=== PATIENT | female | born 2000 | race Caucasian/White ===

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

== ENCOUNTER 2022-08-23 16:43 | Emergency (ER) | payer OTHER, SELFPAY ==
[2022-08-23 16:44] VITALS: BP 103/12; PULSE 70; RESP 15; TEMP 35.9; O2SAT 100; BMI 27.2
--- NOTE | 2022-08-23 17:04 | EKG12_ITS ---
Test Reason : HEAD INJURY Blood Pressure : / mmHG Vent. Rate : 065 BPM Atrial Rate : 065 BPM P-R Int : 134 ms QRS Dur : 086 ms QT Int : 416 ms P-R-T Axes : 031 071 043 degrees QTc Int : 432 ms Somatic/Motion Artifact Normal sinus rhythm Confirmed by JAQUELINE LACKEY, VIVIANE ([id number]), photography editor NICK MEZA ([id number]) on 08/28/2022 9:35:00 AM Referred By: Confirmed By:VIVIANE PARSONS MD
--- NOTE | 2022-08-23 17:04 | CT_ITS ---
EXAMINATION : Head CT w/out contrast HISTORY : head injury COMPARISON : None. TECHNIQUE : Multiple contiguous axial images were obtained from the skull base to the vertex without intravenous contrast. A radiation dose optimization technique was used for this scan. FINDINGS : The ventricles and sulci are normal in size. There is no evidence for acute intracranial hemorrhage, mass effect, or midline shift. There is no extra-axial fluid collection. There is normal corcoran-white differentiation, without CT evidence of acute ischemia or infarct. The skull base and calvarium are unremarkable. The orbits are unremarkable. The paranasal sinuses are clear. The mastoid air cells are well-aerated. The soft tissues are unremarkable. CT/Brain/Head without Contrast IMPRESSION: No acute intracranial abnormality. Electronically Signed: Rasta Avina MD at 17:54 EDT ,
--- NOTE | 2022-08-23 17:05 | EDS_ITS ---
HPI History of Present Illness Chief Complaint: Head Injury Detail of Chief Complaint: Syncope and head injury Informant: patient Narrative Narrative: States shePatient reports having 2 syncopal episodes 6 days ago. The second time she passed out she fell and hit her head. Since that time she had continued headache with nausea and vomiting. Feel warm and flushed before she passed out and felt as if she needed to sit down. She does not have her heart was racing. She has had a couple near syncopal episodes since that time but was not sure it was because of the concussion or something else. Patient states that she did start Prozac recently, but started this after her syncopal episode. [facility] Medical History Acute bronchitis, unspecified Asthma Laceration of right index finger Sprain of right index finger Home Medications albuterol 90 mcg/actuation aerosol inhaler 1 mcg inhalation Q6H PRN Shortness Of Breath 09/10/21 [History Last Taken Unknown] azithromycin 250 mg tablet 250 mg PO QDAY #6 tabs 07/19/22 [Rx Last Taken Unknown] methylprednisolone 4 mg tablets in a dose pack (Medrol (Anton)) See Rx Instructions PO PER PKG DIR #21 tabs 07/19/22 [Rx Last Taken Unknown] Allergy/AdvReac Type Severity Reaction Status Date / Time No Known Allergies Allergy Verified 08/23/22 16:44 Social History household members: family housing: other details: Freshman dorm, [employer] [place] [employer] Smoking Status: Never smoker substance use type: does not use ROS ROS ED Constitutional Constitutional ED: Denies chills or fever(s) Eyes Eyes: Denies change in vision or discharge from eye(s) ENT ENT ED: Denies discharge from eye(s), rhinorrhea or sore throat Cardiovascular Cardiovascular: Denies chest pain or palpitations Respiratory/Chest Respiratory/Chest: Denies cough or dyspnea Gastrointestinal Gastrointestinal: Denies abdominal pain, diarrhea, nausea or vomiting Genitourinary Genitourinary ED: Denies dysuria Musculoskeletal Musculoskeletal: Denies back pain or extremity pain Integumentary Denies Abrasions or rash Neurologic Neurologic: Reports headache(s); Denies weakness Psychiatric Psychiatric: Denies anxiety or depression Allergic/Immunologic Allergic/Immunologic ED: Denies lip swelling or urticaria EXAM Physical Exam Const Vital Signs: 08/23/22 16:44 08/23/22 18:16 Temperature 96.7 F L Temperature Source Temporal Pulse Rate 70 77 Respiratory Rate 15 23 H Blood Pressure 103/12 L Blood Pressure Mean 42 Pulse Ox 100 100 Oxygen Delivery Method Room Air Room Air Positive well nourished and well developed General Appearance ED: well developed HEENT Reports normocephalic and head/scalp atraumatic Eyes PERRL and EOMs intact bilaterally Neck supple Chest Wall inspection of chest normal and palpation of chest normal Resp normal respiratory effort and clear to auscultation bilaterally Cardio regular rate and regular rhythm GI normal to inspection, nondistended, normoactive bowel sounds Palpation: soft Extremity normal to inspection Neuro oriented x3 and no sensory deficits noted Sensorium / Orientation: alert Motor Exam: strength 5/5 throughout Psych mental status grossly normal Skin no rashes or lesions noted MDM MDM MDM Narrative Medical decision making narrative: Patient placed on compliance monitor. EKG obtained. Lab work and head CT ordered. Lab Data Labs: Laboratory Results - last 24 hr 08/23/22 08/23/22 17:25 17:25 WBC 6.7 RBC 4.54 Hgb 13.2 Hct 39.1 MCV 86.1 MCH 29.1 MCHC 33.8 RDW Std Deviation 38.5 RDW Coeff of Khurram 12.2 Plt Count 304 MPV 9.3 Immature Gran % (Auto) 0.300 Neut % (Auto) 58.5 Lymph % (Auto) 32.5 [place] % (Auto) 7.2 Eos % (Auto) 0.6 Baso % (Auto) 0.9 Absolute Neuts (auto) 3.9 Absolute Lymphs (auto) 2.18 Nucleated RBC % 0 Sodium 138 Potassium 3.4 L Chloride 106 Carbon Dioxide 25.0 Anion Gap 7 BUN 9 Creatinine 0.71 Estim Creat Clear Calc 119.31 Est GFR (MDRD) Af Amer 136 Est GFR (MDRD) Non-Af 112 BUN/Creatinine Ratio 12.7 Glucose 93 Calcium 9.4 Radiography Diagnostic Testing: Clinical Impression(s) from Imaging Studies Brain CT 08/23/22 17:04 IMPRESSION: No acute intracranial abnormality. Electronically Signed: Rasta Avina MD at 17:54 EDT , EKG Initial EKG: Attestation: I personally reviewed and interpreted this EKG as follows: Interpretation: Sinus Rhythm (Sinus at 65 with no acute ischemia.) Treatment and Re-Evaluation Narrative: CBC and chemistry studies significant only for slightly low potassium at 3.4. Head CT reveals no acute findings. Test results discussed with her. I did encourage her to return for any recurrent syncopal episodes. She did appear to have a prodrome. I will give her precautions for concussion as well. Discharge Plan Triage Chief Complaint: Head Injury ED Provider: Kimberly Young Dx/Rx/DC Orders Clinical Impression: Closed head injury, Concussion, Syncope Instructions: ED Concussion, ED Fainting, Uncertain Cause Prescriptions: No Action azithromycin 250 mg tablet 250 mg PO QDAY Qty: 6 0RF Rx Instructions: 2 tablets today, then 1 tablet daily on days 2 through 5 methylprednisolone [Medrol (Anton)] 4 mg tablets,dose pack See Rx Instructions PO PER PKG DIR Qty: 21 0RF Rx Instructions: PO PER PKG DIR albuterol 90 mcg/actuation Aerosol 1 mcg INHALATION Q6H PRN (Reason: Shortness Of Breath) Primary Care Provider: Care Physician,No Primary Referrals: [facility] Doctor,Out of [Non-Staff] - Disposition Disposition: Home, Self Care
--- NOTE | 2022-08-23 17:10 | NURSING ---
NO OLD EKGS
[2022-08-23 17:35] LABS: Absolute Lymphocyte Count 2.18 X10^3/uL (0.83-4.51); Absolute Neutrophil Count 3.9 X10^3/uL (2.0-7.7); Basophil# 0.06 X10^3/uL; Basophil% 0.9 % (0-1); Eosinophil# 0.04 X10^3/uL; Eosinophils% 0.6 % (0-5); Hematocrit 39.1 % (37-47); Hemoglobin 13.2 g/dL (12.0-15.0); Lymphocyte # 2.18 X10^3/ul (0.83-4.51); Lymphocyte % 32.5 % (19-41); Mean Corp Hgb Conc 33.8 g/dL (32-36); Mean Corpuscular Hgb 29.1 pg (27.0-32.0); Mean Corpuscular Volume 86.1 fL (81-99); Mean Platelet Vol. 9.3 fl (6.2-12.0); Monocyte# 0.48 X10^3/uL; Monocyte% 7.2 % (0-10); NRBC Flagged by Analyzer 0 % (0-5); Neutrophil # 3.92 X10^3/uL (2.7-7.7); Neutrophil % 58.5 % (47-70); Platelet Count 304 K/mm3 (150-450); RBC Distribution Width CV 12.2 % (11.6-14.6); RBC Distribution Width SD 38.5 fl (35.1-43.9); Red Blood Count 4.54 M/mm3 (4.2-5.4); White Blood Count 6.7 K/mm3 (4.4-11.0)
[2022-08-23] MEDS: 0.9% Normal Saline 1,000 ML 1000 ML IV (18:04)
[2022-08-23 18:16] VITALS: PULSE 77; RESP 23; O2SAT 100
[2022-08-23 19:03] LABS: Anion Gap 7 (5-15); BUN 9 mg/dL (7-18); BUN/Creat Ratio 12.7 RATIO (10-20); Calcium,Total 9.4 mg/dL (8.5-10.1); Chloride 106 mmol/L (98-107); Creatinine, Serum 0.71 mg/dL (0.55-1.02); EST Glomerular Filtration Rate 112 mL/min (>60); Est Glom Filt Rate - Afr Amer 136 mL/min (>60); Estimated Creatinine Clearance 119.31 ml/min; Glucose 93 mg/dL (74-106); Potassium 3.4 mmol/L (3.5-5.1); Sodium Level 138 mmol/L (136-145)
[2022-08-23] MEDS: Potassium Chloride Oral Tablet 20 MEQ 40 MEQ PO (19:16)
[2022-08-23 19:20] VITALS: BP 131/76; PULSE 61
== END 2022-08-23 19:40 | disposition home or self-care (01) ==
PROVIDERS: Emergency Provider Emergency Medicine; Visit Provider Emergency Medicine
DX: S06.0X0A Concussion without loss of consciousness, initial encounter (principal); R55 Syncope and collapse; J45.909 Unspecified asthma, uncomplicated; W19.XXXA Unspecified fall, initial encounter
CPT/HCPCS: 70450; 80048; 85025; 93005; 96360; 99285; J7030; A4216

== ENCOUNTER 2023-07-12 14:50 | Emergency (ER) | payer OTHER, SELFPAY ==
[2023-07-12 14:51] VITALS: BP 132/65; PULSE 81; RESP 16; TEMP 36.4; O2SAT 100; BMI 24.9
[2023-07-12 16:44] LABS: Absolute Lymphocyte Count 1.95 X10^3/uL (0.83-4.51); Basophil# 0.03 X10^3/uL; Basophil% 0.5 % (0-1); Eosinophil# 0.02 X10^3/uL; Eosinophils% 0.3 % (0-5); Hematocrit 41.9 % (37-47); Hemoglobin 13.9 g/dL (12.0-15.0); Lymphocyte # 1.95 X10^3/ul (0.83-4.51); Lymphocyte % 30.3 % (19-41); Mean Corp Hgb Conc 33.2 g/dL (32-36); Mean Corpuscular Hgb 28.9 pg (27.0-32.0); Mean Corpuscular Volume 87.1 fL (81-99); Mean Platelet Vol. 9.3 fl (6.2-12.0); Monocyte# 0.38 X10^3/uL; Monocyte% 5.9 % (0-10); NRBC Flagged by Analyzer 0 % (0-5); Neutrophil # 4.04 X10^3/uL (2.7-7.7); Neutrophil % 62.8 % (47-70); Platelet Count 316 K/mm3 (150-450); RBC Distribution Width CV 12.4 % (11.6-14.6); RBC Distribution Width SD 39.8 fl (35.1-43.9); Red Blood Count 4.81 M/mm3 (4.2-5.4); White Blood Count 6.4 K/mm3 (4.4-11.0)
[2023-07-12] MEDS: Ketorolac 15 MG/ML Vial IV (16:57)
--- NOTE | 2023-07-12 17:02 | EDS_ITS ---
HPI History of Present Illness Chief Complaint: Abd Pain Detail of Chief Complaint: Right upper quadrant/right flank pain Informant: patient Onset/Context/Timing Onset: Month(s) Quality: Pain Location: Right upper quadrant Current Severity: Mild Maximum Severity: Severe Worsened by: Nothing specific Relieved by: Nothing Associated Symptoms Associated Symptoms: Nausea Narrative Narrative: Patient is a 22-year-old who presents with right upper quadrant pain/right flank pain that has been present for the past year. Is gotten worse the past several days. She denies fever, chills night sweats. She denies weight gain or weight loss. She denies cardiac respiratory symptoms. She denies urologic symptoms. She denies history of renal ureterolithiasis. She does have intolerance to greasy food. She did have an ultrasound at the [facility] which revealed multiple gallstones without evidence of acute cholecystitis. She was told by her doctor that the gallstones were dissolved. She is uncertain whether is a family history of cholelithiasis. Prior similar symptoms: Yes Recent Illness/Hospitalization: No PFSH PFSH Medical History Acute bronchitis, unspecified Asthma Laceration of right index finger Sprain of right index finger Home Medications albuterol 90 mcg/actuation aerosol inhaler 1 mcg inhalation Q6H PRN Shortness Of Breath 09/10/21 [History Last Taken Unknown] azithromycin 250 mg tablet 250 mg PO QDAY #6 tabs 07/19/22 [Rx Last Taken Unknown] methylprednisolone 4 mg tablets in a dose pack (Medrol (Anton)) See Rx Instructions PO PER PKG DIR #21 tabs 07/19/22 [Rx Last Taken Unknown] Allergy/AdvReac Type Severity Reaction Status Date / Time No Known Allergies Allergy Verified 07/12/23 14:52 Social History household members: family housing: other details: Freshman dorm, [employer] Smoking Status: Never smoker substance use type: does not use ROS ROS ED Constitutional Constitutional ED: Denies chills, fever(s), subjective, sweats or weight loss Eyes Eyes: Denies blurry vision, change in vision or diplopia ENT ENT ED: Denies ear pain, rhinorrhea or sore throat Cardiovascular Cardiovascular: Denies chest pain, orthopnea, palpitations, paroxysmal nocturnal dyspnea or racing heartbeat Respiratory/Chest Respiratory/Chest: Denies cough, dyspnea, dyspnea on exertion, orthopnea or paroxysmal nocturnal dyspnea Gastrointestinal Gastrointestinal: Reports abdominal pain and nausea; Denies constipation, diarrhea, melena or vomiting Genitourinary Genitourinary ED: Reports LMP (females 10-50) Details: Comment: (2 years ago); Denies dysuria, hematuria or urinary frequency Musculoskeletal Musculoskeletal: Reports back pain; Denies arthralgias, myalgias or neck pain Integumentary Denies rash Neurologic Neurologic: Denies headache(s) or paresthesias Psychiatric Psychiatric: Denies anxiety or depression Endocrine Endocrinology: Denies cold intolerance or heat intolerance Hematologic/Lymphatic Hematologic/Lymphatic: Reports systems reviewed and no addt'l complaints, except as documented EXAM Physical Exam Const Vital Signs: 07/12/23 14:51 Temperature 97.6 F L Temperature Source Temporal Pulse Rate 81 Respiratory Rate 16 Blood Pressure 132/65 H Blood Pressure Mean 87 Pulse Ox 100 Oxygen Delivery Method Room Air Positive well nourished and well developed General Appearance ED: well developed and NAD; Negative for cyanotic, diaphoretic or pallor HEENT Reports moist mucous membranes HEENT Narrative: Head is normocephalic atraumatic. Ears normal. Nares patent. Eyes PERRL and EOMs intact bilaterally General Eye ED: Negative for pale conjunctiva or scleral icterus Neck no lymphadenopathy, supple and no JVD Chest Wall inspection of chest normal and palpation of chest normal Resp normal respiratory effort and clear to auscultation bilaterally Cardio regular rate, regular rhythm, S1 normal heart sound, S2 normal heart sound and no murmurs GI normal to inspection, nondistended, normoactive bowel sounds, non-distended and no masses; Negative for non-tender or hepatosplenomegaly Palpation: soft and tender RUQ and Tinajero's sign; Negative for guarding, splenomegaly, mass or rebound tenderness present Back/Spine no CVA tenderness Extremity normal to inspection General Extremety ED: Negative for edema or tenderness General Extremity: Negative for edema Neuro oriented x3, CN's II-XII intact bilaterally and no sensory deficits noted Sensorium / Orientation: alert Motor Exam: strength 5/5 throughout Psych mental status grossly normal Skin no rashes or lesions noted, no wounds and skin turgor normal General Skin Exam: Negative for jaundice or pallor MDM MDM MDM Narrative Medical decision making narrative: With right upper quadrant pain intolerance to greasy food and known gallstones on ultrasound that was performed at [facility]. Access patient's records through the [facility] which reveals multiple gallstones. For this reason ultrasound was not initially repeated. If her liver enzymes are elevated her white count is elevated with a shift we will obtain ultrasound to assess for acute cholecystitis. The ultrasound did not reveal any other abnormality i.e. fatty liver etc. History & Record Review Additional record(s) reviewed:: Prior outpatient record ([facility] lab results and ultrasound right upper quadrant) and Prior ED visit (Minor complaints.) Lab Data Attestation: I reviewed the patient's lab results. Lab results narrative: CBC, hepatic panel and lipase are all normal. Labs: Laboratory Results - last 24 hr 07/12/23 16:27 WBC 6.4 RBC 4.81 Hgb 13.9 Hct 41.9 MCV 87.1 MCH 28.9 MCHC 33.2 RDW Std Deviation 39.8 RDW Coeff of Khurram 12.4 Plt Count 316 MPV 9.3 Immature Gran % (Auto) 0.200 Neut % (Auto) 62.8 Lymph % (Auto) 30.3 [place] % (Auto) 5.9 Eos % (Auto) 0.3 Baso % (Auto) 0.5 Absolute Neuts (auto) 4.0 Absolute Lymphs (auto) 1.95 Nucleated RBC % 0 Total Bilirubin 0.60 Direct Bilirubin 0.16 AST 10 L ALT 13 Alkaline Phosphatase 54 Total Protein 7.7 Albumin 4.1 Globulin 3.6 Lipase 41 Treatment and Re-Evaluation :: Patient was informed since she is not in severe pain her blood work is normal that she will need outpatient testing and possibly HIDA scan. She was referred to Dr. Laureano who is on-call for general surgery. Discharge Plan Triage Chief Complaint: Abd Pain ED Provider: SaulMook Dx/Rx/DC Orders Clinical Impression: Chronic right upper quadrant pain, Cholelithiasis Instructions: Gallstones Dc Prescriptions: No Action azithromycin 250 mg tablet 250 mg PO QDAY Qty: 6 0RF Rx Instructions: 2 tablets today, then 1 tablet daily on days 2 through 5 methylprednisolone [Medrol (Anton)] 4 mg tablets,dose pack See Rx Instructions PO PER PKG DIR Qty: 21 0RF Rx Instructions: PO PER PKG DIR albuterol 90 mcg/actuation Aerosol 1 mcg INHALATION Q6H PRN (Reason: Shortness Of Breath) Primary Care Provider: Care Physician,No Primary Referrals: Iwona Laureano MD [Med Staff - Active Staff] - 1 Week Care Physician,No Primary [Primary Care Provider] - Disposition Disposition: Home, Self Care
[2023-07-12 17:17] LABS: AST(SGOT) 10 U/L (15-37); Alanine Aminotransfer ALT/SGPT 13 U/L (13-56); Albumin, Serum 4.1 g/dL (3.2-5.0); Alkaline Phosphatase 54 U/L (45-117); Bilirubin, Direct 0.16 mg/dL (0.00-0.30); Globulin 3.6 g/dL (2.2-4.2); Lipase 41 U/L (13-75); Protein, Total 7.7 g/dL (6.4-8.2)
[2023-07-12 18:00] VITALS: BP 128/78; PULSE 64; RESP 14; TEMP 36.4; O2SAT 99
== END 2023-07-12 18:07 | disposition home or self-care (01) ==
PROVIDERS: Emergency Provider Emergency Medicine; Visit Provider Emergency Medicine
DX: R10.11 Right upper quadrant pain (principal); K80.20 Calculus of gallbladder without cholecystitis without obstruction; J45.909 Unspecified asthma, uncomplicated; Z79.899 Other long term (current) drug therapy
CPT/HCPCS: 80076; 83690; 85025; 96374; 99283; A4216

== ENCOUNTER 2023-08-09 10:57 | Day surgery (SDC) | payer OTHER, SELFPAY ==
[2023-08-09] VITALS (10 sets, daily range): BP systolic 105–148; BP diastolic 73–100; PULSE 62–90; RESP 14–18; TEMP 36.4–37; O2SAT 98–100; BMI 26.9
--- NOTE | 2023-08-09 11:36 | HP.PCM_ITS ---
History and Physical Date of Admission: 08/09/23 Date of Service: 07/20/23 MR#: [id number] Acct: [id number] Name: DELMAR KATHLEEN Rep #: [id number] : 2000 Provider: Dr. Iwona Laureano MD Age/Sex: 22/F Location: [facility] Status: Signed Intake Vital Signs 07/12/2314:51 07/20/2308:15 Height 5 ft 4 in 5 ft 4 in Weight: 159 lb 4 oz BMI 27.3 BP 112/76 Blood Pressure Location Rt brachial Position Sitting Respiration 17 Pulse 86 Pulse Source Monitor Temp 97.4 F L Temp Source Temporal Pulse Oximetry (%) 97 Oxygen Delivery Method room air Intake Visit Reasons: RIGHT UPPER QUADRANT PAIN ER 07/12 Chief Complaint: right upper quadrant pain ER 07/12 Is patient in pain?: Yes Allergies No Known Allergies Allergy (Verified 07/12/23 14:52) Medications albuterol 90 mcg/actuation aerosol inhaler 1 mcg inhalation Q6H PRN Shortness Of Breath 09/10/21 [History Confirmed 07/20/23] methylprednisolone 4 mg tablets in a dose pack (Medrol (Anton)) See Rx Instructions PO PER PKG DIR #21 tabs 07/19/22 [Rx Confirmed 07/20/23] pantoprazole 40 mg tablet,delayed release 40 mg PO DAILY #30 tabs 07/20/23 [Rx Confirmed 07/20/23] PFSH Medical History Acute bronchitis, unspecified Asthma Laceration of right index finger Sprain of right index finger Social History (Updated 07/20/23 @ 08:14 by Lorna Goldberg) household members: family housing: other details: Freshman dorm, [employer] Smoking Status: Never smoker alcohol intake: current alcohol intake frequency: holidays/special occasions only substance use type: does not use HPI HPI HPI: 22-year-old female presents with her mom due to gallstones and right upper quadrant pain. Patient states that last year in August/September/October she had combination of mono/COVID/concussion and was having right upper quadrant pain at that time but was told it was due to their mono. Patient did have an ultrasound at [facility] in December of this year which per the report states she has gallstones 7 mm was the largest, normal wall, normal common bile duct, no pericholecystic fluid. Upon my read after looking at imaging patient had a singular gallstone of 7 mm. She went to the ER on 07/12 had lab work which was all within normal limits and was sent home. Patient states that she has come nausea in general is not the best historian as far as timing and symptom onset. Patient states that she has the right upper quadrant pressure kind of al l the time and occasionally it may increase her flareup throughout the day. Patient states she also has reflux and will have vomiting in the morning and is not on any medications for her reflux. Patient also states that she is woke up a couple times in the middle of the night initially said her supper was at 630 but then said she may have ate prior to going to bed. Yesterday patient had Pasta with Ubaldo sauce and ice cream for lunch states she did not feel that well but denies any throwing up or extreme pain. Patient states she has a high pain tolerance. ROS General General: Yes weight change and fatigue; No appetite, colon cancer, breast cancer or weakness HEENT HEENT: No difficulty swallowing, eye injury, eye surgery, swollen glands or hoarseness Endo Endocrine: No thyroid disease, diabetes mellitus, thyroid cancer, Hair loss, heat intolerance or cold intolerance Skin Skin: No rash or changing moles Musc Musculoskeletal: No back problems, arthritis, rheumatoid arthritis, gout or joint pain Cardio Cardiovascular: No murmur, pacemaker, heart disease, atrial fibrillation, high blood pressure, heart attack, heart stent, palpitations, shortness of breat with exertion or chest pain Psych Psychiatric: Yes depression and anxiety; No hearing voices Resp Respiratory: No shortness of breath, No sleep apnea, No cough, No COPD, Yes asthma, No emphysema and No wheezing Gastro Gastrointestinal: Yes abdominal pain, Yes nausea or vomiting, No diarrhea, No constipation, No blood in stool, Yes acid reflux, No hemorrhoids, No ulcers, Yes gallbladder problem and No black,tarry stools Gino Hematologic: No blood thinners, No blood disorders, No bleeding, No anemia and No blood clots Neuro Neurologic: No system reviewed and no additional complaints, except as documented, No as per HPI, No abnormal gait, No abnormal hearing, No abnormal movements, No abnormal speech, No behavioral changes, No burning sensations, No confusion, No convulsions, No disequilibrium, No dizziness, No localized weakness, No frequent falls, No headache(s), No lack of coordination, No loss of vision, No memory loss, No numbness, No other visual disturbances, No radicular pain, No restless legs, No sensory deficit, No syncope, No tingling, No tremor(s), No weakness and No other Exam Const General: cooperative, healthy appearing, comfortable and no acute distress [facility] Head: normocephalic and atraumatic Neck Neck: supple Resp Effort & Inspection: normal respiratory effort Cardio Rate: regular rate GI Inspection: non-distended Palpation: soft and no hernias Other: Mild pressure in the right upper quadrant no peritoneal signs Skin General: no rashes or lesions noted Neuro General: CN's II-XI intact bilaterally Extrem General: normal to inspection Psych Mental Status: mental status grossly normal Attitude: cooperative Assessment and Plan Assessment and Plan (1) Acid reflux: Status: Acute (2) Cholelithiasis: Status: Acute (3) RUQ pain: Status: Acute Medications: New pantoprazole 40 mg PO DAILY 30 tabs 2RF Plan Discussed with patient and her mom that she likely has some element of reflux/gastritis as well we will start her on Protonix 40 mg p.o. daily see if this helps. Did review images of gallbladder there is 1 stone that is 7 mm in size is located near the infundibulum the gallbladder is not distended normal wall no cholecystic fluid from the ultrasound in December. Patient's symptoms could also fit with symptomatic cholelithiasis we will schedule laparoscopic cholecystectomy as well. Recommend patient stay on her Protonix prior to surgery and 2 weeks afterwards. Patient and her mom were agreeable with plan. Did advise patient stay with fatty/ greasy foods, Pasta sauces, caffeine, spicy foods. Reviewed the anatomy with the patient and discussed the procedure: laparoscopic cholecystectomy with cholangiograms, possible open. Review risks including but not limited to bleeding, infection, hernia, bile leak, retained gallstones requiring another procedure ERCP- Endoscopic Retrograde Cholangiopancreatography, injury to another organ (bile ducts, common bile duct, small bowel, etc.) and conversion to an open procedure. All questions were answered. Iwona Laureano M.D. Pager: [phone] [facility] [address] [place] [address], [facility], [address] [place] [address] Office: [phone] Coding Level of Care Code Off vis,new,level 4 Diagnoses Acid reflux K21.9 Cholelithiasis K80.20 RUQ pain R10.11 07/20/23 1044 <Electronically signed by Iwona Laureano MD> Date Iwona Laureano MD
[2023-08-09 11:38] LABS: Internal QC Validated? YES +Cl - CLEAR BKGD; Pregnancy, Urine Negative Negative
[2023-08-09] MEDS: Lactated Ringers 1,000 ML 15 ML IV (11:41)
--- NOTE | 2023-08-09 12:30 | GALL_PTH ---
PATIENT: DELMAR KATHLEEN LOC: [facility] U#:[id number] AGE/SX: 22/F ROOM: RE08/09/[address]: Dr. Iwona Laureano MD : 2000 BED: DIS: 08/09/2023 SPEC #: [id number] RECD: 08/09/23 15:52 STATUS: IRIS REScarlett #: [id number] TOMAS: 08/09/23 12:[address]: Iwona Laureano DEPT: SURGICAL PATHOLOGY RECD BY: Carisa Garcia ENTERED: 08/10/23 07:38 SP TYPE: COLLIN GONZALEZ DR: No Primary Care Phys Tissues: Gallbladder, NOS Procedures: Surgery Specimen Level III HEADER OPERATION: Laparoscopic cholecystectomy PRE-OP DIAGNOSIS: Cholelithiasis, RUQ pain TISSUE SUBMITTED: Gallbladder MICROSCOPIC DIAGNOSIS Gallbladder, cholecystectomy: Mild chronic cholecystitis and cholelithiasis. AM:filippo 08/13/2023 MICROSCOPIC DESCRIPTION Slides are reviewed. GROSS DESCRIPTION Received is one container labeled with the patient's name and designated gallbladder. The specimen consists of a distended gallbladder measuring 7.6 x 2.5 x 2.5 cm. The external surface is smooth and glistening. Focally, it is granular, hemorrhagic and contains cautery artifact. The lumen of the gallbladder contains a large amount of green mucoid bile and multiple black calculi ranging in size from 0.1 to 0.8 cm in greatest dimension. The mucosa is bile-stained and without any mass lesions. The gallbladder wall averages 0.1 cm in thickness and is free of mass lesions. Computer Customer Support Specialist sections of the gallbladder and the cystic duct at margin of resection are submitted in one cassette. / AM:filippo 08/10/2023 :3 CPT: 82871
[2023-08-09] MEDS: Cefazolin 2 GM in 0.9% Normal Saline (100mL Bag) 100 ML IV (12:31)
[2023-08-09] MEDS: Bupivacaine Mpf 0.5% 30 ML VIAL (12:48)
--- NOTE | 2023-08-09 13:50 | OP.PCM_ITS ---
Report of Operation Date of Procedure: 08/09/23 Pre-Operative Diagnosis: Cholelithiasis, right upper quadrant pain Post-Operative Diagnosis: Same Surgery/Procedure Performed:: Laparoscopic cholecystectomy Surgeon: Iwona Laureano Type of Anesthesia: General/Supplemental Anesthesiologist: Roe Sylvester Special Medications: Ancef 2 g IV x1 Specimen's removed: Gallbladder Description of Procedure: Indications: this is a 22 year-old female who developed abdominal pain/nausea/vomiting and on workup was found to have GERD, cholelithiasis, with a normal common bile duct. Laparoscopic cholecystectomy was elected. Description procedure: The patient was placed on operating table in supine position. A timeout was completed verifying correct patient, procedure, site, position and special equipment prior to beginning procedure. General Anesthesia was induced. The abdomen was prepped and draped in usual sterile f ashion. An incision was made in the natural skin line above the umbilicus. The fascia was elevated and incised. The peritoneum was elevated and incised. Entry into the peritoneum was confirmed visually and no bowel was noted in the vicinity of the incision. Sanchez trocar was placed. The abdomen was insufflated with carbon dioxide to a pressure of 12-15 mmHg. Patient tolerated insufflation well. The laparoscope was then inserted and abdomen inspected. No injuries from initial trocar placement were noted. Additional trochars were then inserted in the following locations 5 mm trocar in the epigastrium and 2 more 5 mm trochars along the right costal margin. The abdomen was inspected no abnormalities were found. The table is placed in reverse Trendelenburg position with the right side up. The dome of the gallbladder was grasped with atraumatic grasper passed through the lateral port and retracted over the dome of the liver. Infundibulum was then grasped with atraumatic grasper through the midclavicular port and retracted to the right lower quadrant. This maneuver exposed Calot's triangle. The peritoneum overlying the gallbladder infundibulum was then incised and cystic duct and artery identified and circumferentially dissected. The cystic duct and artery were then doubly clipped and divided close to the gallbladder. The gallbladder then dissected from its peritoneal attachments by electrocautery. Hemostasis was checked and the gallbladder and contained stones were removed using the endoscopic retrieval bag through the umbilical port. The gallbladder is passed off table as specimen. The gallbladder fossa was irrigated with saline and hemostasis obtained. There is no evidence of bleeding from the gallbladder fossa or cystic artery leakage of bile from the cystic duct stump. Secondary trochars removed under direct vision. No bleeding was noted the trocar sites. The laparoscope was withdrawn and umbilical trocar removed. The abdomen was allowed to collapse. The fascia of the 12 mm trocar was closed with a [id number] 0 Vicryl suture. The skin was closed with sutures of 4-0 Monocryl and Steri-Strips. The patient was extubated. The patient tolerated procedure well and was taken to the postanesthesia care unit in stable condition. Complications None
--- NOTE | 2023-08-09 13:53 | DCINST_ITS ---
Discharge Instructions Diet Discharge Diet: Light diet - advance as tolerated Activity Discharge Activity: May Not Drive (while taking narcotic pain medications.) May shower in (days): 1 Lifting Restrictions: no lifting >20 lbs x 2 wks, no strenuous exercise for 4 wks Dressing / Incision Call your doctor if your incision/area has: Continuous Slow Oozing, Sudden Increased Bleeding, Increased Pain/ Swelling, Increased Redness, Foul Smelling Discharge and Swelling at the incision site Call your doctor if you observe: Fever of 101 or Higher Remove Dressing in: 2 days Cleanse incision/area with: Soap & Water Additional Dressing/Incision Instructions:: Steri-Strips will fall off in 7 to 10 days, if they do not fall off okay to remove after 10 days. Follow Up Care Please Follow Up With: Iwona Laureano MD When: Call the office for a follow-up appointment 2 weeks; after 5 PM and on the weekends call [phone] with any concerns. Test Results: Test results from this visit will be discussed in further detail at your follow- up appointment, if applicable. Discharge Plan Admission Attending Provider: Iwona Laureano Primary Care Provider: Care Physician,Ana Primary Discharge Orders/Prescriptions Prescriptions: New oxycodone-acetaminophen 5-325 mg tablet 1 - 2 tab PO Q6H PRN (Reason: pain) 3 Days Qty: 14 0RF Continued pantoprazole 40 mg tablet,delayed release (DR/EC) 40 mg PO DAILY Qty: 30 2RF albuterol 90 mcg/actuation Aerosol 1 mcg INHALATION Q6H PRN (Reason: Shortness Of Breath) Nexplanon 68 mg implant 1 implant subdermal .3 YRS Aofw-Oens-Kqso(vit A,C-biotin) 2,500 unit-100 mg-2,500 mcg capsule 1 cap PO DAILY biotin 1 mg capsule 1 mg PO DAILY Referrals / Follow Up: Care Physician,No Primary [Primary Care Provider] - Disposition Disposition (needs filled in before D/C Order can be placed): Home, Self Care
[2023-08-09] MEDS: oxyCODONE 5 MG Tablet PO (15:55)
== END 2023-08-09 16:28 | disposition home or self-care (01) ==
LOC: SDC 11:02 → AC 11:03
PROVIDERS: Anesthesiology; Referring Provider Surgery; Visit Provider Surgery
PROC: (CPT 47610; principal; 2023-08-09 12:10)
DX: K80.10 Calculus of gallbladder with chronic cholecystitis without obstruction (principal); K21.9 Gastro-esophageal reflux disease without esophagitis; J45.909 Unspecified asthma, uncomplicated
CPT/HCPCS: 47562; 00790; 81025; 88304; 93005; J7120; J2405